=== PATIENT | male | born 1950 ===

== ENCOUNTER → 2018-05-10 | Outpatient (CLI) | payer OTHER | LOC: BHFA 13:30 | PROVIDERS: ATTEND Internal Medicine Cardiovascular Disease | DX: Z02.1 Encounter for pre-employment examination (principal) | CPT/HCPCS: 78452; 93017; A9500 ==

== ENCOUNTER → 2018-05-31 | Outpatient (CLI) | payer OTHER | LOC: BHFA 08:30 | PROVIDERS: ATTEND Internal Medicine Cardiovascular Disease | DX: Z02.1 Encounter for pre-employment examination (principal) ==